=== PATIENT | female | born 1955 | race Asian ===

== ENCOUNTER → 2019-04-23 07:53 | Outpatient (CLI) | payer MEDICARE, OTHER, SELFPAY ==
--- NOTE | 2019-04-23 | DI.MG.S_ITS ---
BILATERAL DIGITAL SCREENING MAMMOGRAM 3D/2D WITH CAD: 04/23/2019 CLINICAL: Routine screening. Comparison is made to exams dated: 03/14/2018 mammogram, 05/04/2015 mammogram, and 03/14/2017 mammogram - [facility]. There are scattered fibroglandular elements in both breasts. Current study was also evaluated with a Computer Aided Detection (CAD) system. There are benign calcifications in both breasts. No significant masses, calcifications, or other findings are seen in either breast. There has been no significant interval change. IMPRESSION: There is no mammographic evidence of malignancy. A 1 year screening mammogram is recommended. This exam was interpreted at Station ID: [id number]. NOTE: For mammograms, a report in lay terms will be sent to the patient. Approximately 15% of breast malignancies will not be visualized mammographically. In the management of a palpable breast mass, a negative mammogram must not discourage biopsy of a clinically suspicious lesion. Electronically Signed By: Faisal martinez/damian:04/23/2019 09:14:43 letter sent: Normal Exam ACR BI-RADS Category 2: Benign Finding(s) 3342F
== END ==
PROVIDERS: Family Provider Family Medicine; PCP Family Medicine; Visit Provider Internal Medicine
DX: Z12.31 Encounter for screening mammogram for malignant neoplasm of breast (principal)
CPT/HCPCS: 77063; 77067

== ENCOUNTER → 2019-08-01 15:02 | Outpatient (CLI) | payer MEDICARE, OTHER, SELFPAY | PROVIDERS: Family Provider Family Medicine; PCP Internal Medicine; Referring Provider Internal Medicine; Visit Provider Internal Medicine | DX: M85.851 Other specified disorders of bone density and structure, right thigh (principal); Z78.0 Asymptomatic menopausal state; E07.9 Disorder of thyroid, unspecified; Z90.722 Acquired absence of ovaries, bilateral; Z87.891 Personal history of nicotine dependence | CPT/HCPCS: 77080 ==

== ENCOUNTER → 2020-05-01 08:40 | Outpatient (CLI) | payer MEDICARE, OTHER, SELFPAY ==
--- NOTE | 2020-05-01 | DI.MG.S_ITS ---
BILATERAL DIGITAL SCREENING MAMMOGRAM 3D/2D WITH CAD: 05/01/2020 CLINICAL: Routine screening. Comparison is made to exams dated: 04/23/2019 mammogram - [facility], 03/14/2018 mammogram, and 03/14/2017 mammogram - [facility]. There are scattered fibroglandular elements in both breasts. Current study was also evaluated with a Computer Aided Detection (CAD) system. There are benign calcifications in both breasts. No significant masses, calcifications, or other findings are seen in either breast. There has been no significant interval change. IMPRESSION: BENIGN There is no mammographic evidence of malignancy. A 1 year screening mammogram is recommended. This exam was interpreted at Station ID: [id number]. NOTE: For mammograms, a report in lay terms will be sent to the patient. Approximately 15% of breast malignancies will not be visualized mammographically. In the management of a palpable breast mass, a negative mammogram must not discourage biopsy of a clinically suspicious lesion. Electronically Signed By: Lopez Toure acr/damian:05/02/2020 14:02:49 letter sent: Normal Exam ACR BI-RADS Category 2: Benign Finding(s) 3342F
== END ==
PROVIDERS: Family Provider Family Medicine; PCP Internal Medicine; Referring Provider Internal Medicine; Visit Provider Internal Medicine
DX: Z12.31 Encounter for screening mammogram for malignant neoplasm of breast (principal)
CPT/HCPCS: 77063; 77067

== ENCOUNTER → 2021-05-07 10:11 | Outpatient (CLI) | payer MEDICARE, OTHER, SELFPAY ==
--- NOTE | 2021-05-07 | DI.MG.S_ITS ---
BILATERAL DIGITAL SCREENING MAMMOGRAM 3D/2D WITH CAD: 05/07/2021 CLINICAL: Routine screening. Comparison is made to exams dated: 05/01/2020 mammogram, 04/23/2019 mammogram - [facility], 03/14/2018 mammogram, and 05/04/2015 mammogram - [facility]. There are scattered fibroglandular elements in both breasts. Current study was also evaluated with a Computer Aided Detection (CAD) system. There are benign calcifications in both breasts. No significant masses, calcifications, or other findings are seen in either breast. There has been no significant interval change. IMPRESSION: BENIGN There is no mammographic evidence of malignancy. A 1 year screening mammogram is recommended. This exam was interpreted at Station ID: [id number]. NOTE: For mammograms, a report in lay terms will be sent to the patient. Approximately 15% of breast malignancies will not be visualized mammographically. In the management of a palpable breast mass, a negative mammogram must not discourage biopsy of a clinically suspicious lesion. Electronically Signed By: She ruby/damian:05/09/2021 10:36:14 letter sent: Normal Exam ACR BI-RADS Category 2: Benign Finding(s) 3342F
== END ==
PROVIDERS: Family Provider Family Medicine; PCP Internal Medicine; Referring Provider Internal Medicine; Visit Provider Internal Medicine
DX: Z12.31 Encounter for screening mammogram for malignant neoplasm of breast (principal)
CPT/HCPCS: 77063; 77067

== ENCOUNTER → 2022-01-27 09:34 | Outpatient (CLI) | payer MEDICARE, OTHER, SELFPAY ==
[2022-01-27 11:21] LABS: COVID19 -Nasal RAPID Negative (Negative)
== END ==
PROVIDERS: Family Provider Family Medicine; PCP Internal Medicine; Visit Provider Surgery
DX: Z20.822 Contact with and (suspected) exposure to COVID-19 (principal); Z01.812 Encounter for preprocedural laboratory examination
CPT/HCPCS: 87635; C9803

== ENCOUNTER 2022-01-30 07:49 | Day surgery (SDC) | payer MEDICARE, OTHER, SELFPAY ==
--- NOTE | 2022-01-30 | PATH_ITS ---
[facility] Accession Number: [id number] . 01 Material submitted: . PART A: gastrointestinal site - ANTRUM PART B: gastrointestinal site - GASTRIC BODY PART C: gastrointestinal site - GASTRIC BODY NODULE PART D: colon - ASCENDING COLON POLYP PART E: colon - RECTO-SIGMOID POLYP . 01 Clinical history: . COLONOSCOPY AND EGD . 01 Diagnosis: A. Stomach, Antrum, Biopsy: Antral mucosa with mild chronic gastritis and intestinal metaplasia. Intestinal metaplasia is present in 2 of 2 fragments. Negative for Helicobacter organisms by immunohistochemistry. Negative for dysplasia and malignancy. . B. Stomach, Body, Biopsy: Body-type mucosa with mild chronic gastritis and intestinal metaplasia. Intestinal metaplasia is present in 2 of 2 fragments. Negative for Helicobacter organisms by immunohistochemistry. Negative for dysplasia and malignancy. . C. Stomach, Body Nodule, Biopsy: Body type mucosa with intestinal metaplasia and xanthomatous changes. No evidence of Helicobacter on H/E stain. Negative for dysplasia and malignancy. . D. Ascending Colon, Polyp, Biopsy: Tubular adenoma. . E. Rectosigmoid Colon, Polyp, Biopsy: Tubular adenoma. [facility] 02/01/2022 1247 Local . 01 Electronically signed: . Shilpa Syed MD, Pathologist NPI- [id number] . 01 Gross description: . Part A: ANTRUM: Received in formalin are 2 fragment(s) of nj, soft tissue measuring 0.1 x 0.1 x 0.1 cm to 0.2 x 0.2 x 0.2 cm submitted entirely in 1 cassette(s) Part B: GASTRIC BODY: Received in formalin are 2 fragment(s) of nj, soft tissue measuring 0.2 x 0.1 x 0.1 cm to 0.3 x 0.2 x 0.2 cm submitted entirely in 1 cassette(s) Part C: GASTRIC BODY NODULE: Received in formalin are 2 fragment(s) of nj, soft tissue measuring 0.1 x 0.1 x 0.1 cm in aggregate submitted entirely in 1 cassette(s) Part D: ASCENDING COLON POLYP: Received in formalin is 1 fragment(s) of nj, soft tissue measuring 0.3 x 0.3 x 0.3 cm submitted entirely in 1 cassette(s) Part E: RECTO-SIGMOID POLYP: Received in formalin is 1 fragment(s) of nj, soft tissue measuring 0.2 x 0.2 x 0.2 cm submitted entirely in 1 cassette(s) /GIULIA 01/30/2022 2211 Local . 01 Microscopic: . A. An immunohistochemical stain was performed to evaluate for Helicobacter organisms and is negative. The control stain showed appropriate reactivity. . B. An immunohistochemical stain was performed to evaluate for Helicobacter organisms and is negative. The control stain showed appropriate reactivity. . * This test was developed and its performance characteristics determined by [employer]. It has not been cleared or approved by the U.S. Food and Drug Administration. The FDA has determined that such clearance or approval is not necessary. This test is used for clinical purposes. It should not be regarded as investigational or for research. . 01 Pathologist provided ICD-10: D12.2, D12.7, Z86.010 . 01 CPT . 874163, 493369, 718140, 773521, 957054, M26324 Specimen Comment: A courtesy copy of this report has been sent to [phone] Performed at: 01 [facility] [address] [place] [address], [place], [place] [id number] MD Abhay Moss MD Phone: [phone]
[2022-01-30 08:10] VITALS: BP 147/73; PULSE 69; RESP 16; TEMP 36.5; O2SAT 98
[2022-01-30 08:12] VITALS: BMI 32.1
[2022-01-30] MEDS: SODIUM CHLORIDE 0.9% 1,000 ML 84 ML IV (08:21)
--- NOTE | 2022-01-30 09:02 | PM.HP.1 ---
History of Present Illness History of Present Illness Date Patient Seen: 01/30/22 Time Patient Seen: 09:02 Chief complaint: Colonoscopy and EGD Narrative: GERD epigastric dyspepsia burning in quality. Personal history of colon polyps. Patient History Family & Social History Social History: household members spouse Tobacco & Substance use: Smoking Status Former smoker alcohol intake never Substance Use Type does not use Meds Home Medications and Allergies Home Medications Medication Instructions Recorded Confirmed Type LEVOTHYROXINE SODIUM (Synthroid) 0 PO * DOSE/FREQUENCY* ##0 03/07/08 History cetirizine 10 mg tablet 10 mg PO QDAY ##0 05/30/17 01/30/22 History losartan 25 mg tablet 25 mg PO QDAY ##0 05/30/17 01/30/22 History sitagliptin 50 mg-metformin ER 500 1 tab PO QDAY ##0 05/30/17 01/30/22 History mg tablet,extended release 24h mp (Janumet XR) atorvastatin 40 mg tablet 40 mg DAILY 01/30/22 01/30/22 History pioglitazone 15 mg tablet 15 mg DAILY 01/30/22 History Allergies Allergy/AdvReac Type Severity Reaction Status Date / Time adhesive [ADHESIVE] Allergy Unknown Verified 01/30/22 08:05 latex [LATEX] Allergy Unknown Verified 01/30/22 08:05 Review of Systems Review of Systems ROS: Yes All systems reviewed with the patient and are negative except as otherwise documented Exam Vital Signs (past 8 hours): - 01/30/22 08:10 Temperature 97.7 F Pulse Rate 69 Respiratory Rate 16 Blood Pressure 147/73 H Pulse Oximetry 98 Oxygen Delivery Method Room Air Oxygen Delivery Method Room Air Const General: cooperative HENMT Head: normal to inspection Eyes General: appearance normal, both eyes and all related structures Neck Neck: normal visual inspection Chest Chest: normal inspection of the chest Resp Effort & Inspection: normal respiratory effort Cardio Rate: regular rate GI Inspection: normal to inspection Skin General: no rashes or lesions noted Neuro General: patient alert and patient awake Extrem General: normal to inspection and no pedal edema Psych Appearance: grossly normal Assessment & Plan Assessment & Plan narrative: 66-year-old female with severe intermittent reflux symptoms 3 or 4 times out of the month plus burning epigastric discomfort twice a week on average. She has a personal history of colon polyps. EGD and colonoscopy are pursued today. Time Spent With Patient Critical Care time: I spent a total of [] minutes of critical care time on this patient's care today; this time is exclusive of procedural time.
--- NOTE | 2022-01-30 09:04 | PM.PREOP ---
Pre-operative Note COVID-19 COVID-19 status: Negative Result date/Date tested (Pos, Neg/Pending): 01/27/22 Criteria for continued procedure: Possibility delay results in more complex future surgery or treatment Interval Note History & Physical reviewed/Exam performed by Physician: Yes Changes to H&P: No ASA Class (for procedural sedation): II
--- NOTE | 2022-01-30 09:47 | PM.OP.EC ---
Operative Date/Time/Diagnoses Date of procedure: 01/30/22 Time of procedure: 09:48 Pre-op diagnosis: Reflux, dyspepsia, family history of gastric cancer, personal history of colon polyps. Post-op diagnosis: same Procedure & Clinicians Study performed: EGD with biopsies and colonoscopy with cold forceps polypectomy Same procedure as scheduled: Yes Indications: GERD, dyspepsia, family history of gastric cancer, personal history of colon polyps Surgeon: Jered Hinojosa Procedure Notes SCOAP/Timeout: Done Procedure in detail: After the risks and benefits were explained, written and verbal informed consent was obtained. The patient was brought into the procedure room and placed into the left lateral decubitus position. Please see nurse surveillance operator notes for sedation details. The scope was introduced into the mouth through the bite block and advanced under direct visualization to the 2nd portion of the duodenum. The scope was slowly withdrawn carefully examining the mucosa for any defects or lesions. Retroflexed views were accomplished in the stomach. The stomach was decompressed, the scope was then removed from the patient who tolerated the procedure well. The patient was then turned around a digital rectal examination accomplished. The scope was introduced into the rectum and advanced to the cecum as identified by the appendiceal orifice and ileocecal valve. The scope was slowly withdrawn to carefully examine the mucosa for any defects or lesions. Multiple direct views were made through the dentate line for exclusion of pathology the colon was decompressed scope removed the patient tolerated the procedure well. Adult colonoscope Bowel prep adequate Scope withdrawal time: 14 minutes Sedation minutes: 43 Complications: none Impression: 1. Duodenum: This was visually normal from the bulb through the 2nd portion. 2. Stomach: No gastric outlet obstruction no ulcers no mass lesions. There was however an unusual somewhat friable nodular and erythematous swath of mucosa that extended from the cardia down through the gastric body into proximal antrum. This area was targeted for biopsy in submitted for histopathology. Prior to that a separate set of biopsies had been acquired from the antrum for exclusion of H pylori. Within the abnormal section of mucosa there was a small 3-4 mm slightly white sessile mucosal elevation that was targeted with the forceps and submitted separately. 3. Esophagus: The squamocolumnar junction correlated with the top of the gastric folds. GEJ was at 45 cm from the incisors. No acute erosive changes no strictures no mass lesions. 4. Colon: There was a small polyp in the rectosigmoid region removed with cold forceps. This measured perhaps 3-4 mm. It was a 4-5 mm polyp in the ascending colon removed with cold forceps. No additional pathology was appreciated throughout. Grade 2 hemorrhoids were noted on digital exam and direct views. Endoscopic diagnosis 1. Focal nodular friable gastropathy 2. Gastric nodule 3. Colon polyps 4. Grade 2 hemorrhoids. Post-procedure Plan for aftercare: 1. Await histopathology. 2. Repeat colonoscopy 7 years. 3. If Helicobacter is found it will need to be eradicated with standard triple therapy. Disposition: PACU
[2022-01-30 09:50] VITALS: BP 110/65; PULSE 62; RESP 17; TEMP 36.9; O2SAT 96
[2022-01-30 09:55] VITALS: BP 122/65; PULSE 62; RESP 18; O2SAT 95
[2022-01-30 10:00] VITALS: BP 129/67; PULSE 61; RESP 18; O2SAT 97
[2022-01-30 10:10] VITALS: BP 138/71; PULSE 60; RESP 16; O2SAT 94
[2022-01-30 10:23] VITALS: BP 143/78; PULSE 65; RESP 16; O2SAT 95
--- NOTE | 2022-01-30 10:28 | SUR.PHASEII ---
Pt A&Ox4, denies any distress, tolerating PO, VSS, and ready to discharge home. Discharge instructions reviewed with patient with teachback. Called spouse 3 times to make aware pt ready to go home, no answer, messages left. Volunteer has spoken with spouse and verified that will be at the ER entrance to transport pt home. Pt dressed self without any issues, IV DC'd intact. Pt left unit stable with all personal belongings via w/c with volunteer assist.
== END 2022-01-30 10:28 | disposition home or self-care (01) ==
PROVIDERS: Family Provider Family Medicine; PCP Internal Medicine; Referring Provider Internal Medicine Gastroenterology; Visit Provider Internal Medicine Gastroenterology
PROC: 0DJ08ZZ Inspection of Upper Intestinal Tract, Via Natural or Artificial Opening Endoscopic (ICD-10-PCS; CPT 43235; principal; 2022-01-30 09:00)
PROC: 0DJD8ZZ Inspection of Lower Intestinal Tract, Via Natural or Artificial Opening Endoscopic (ICD-10-PCS; CPT 45378; 2022-01-30 09:00)
DX: Z12.11 Encounter for screening for malignant neoplasm of colon (principal); K21.9 Gastro-esophageal reflux disease without esophagitis; R10.13 Epigastric pain; Z80.0 Family history of malignant neoplasm of digestive organs; Z86.010 Personal history of colon polyps; K64.1 Second degree hemorrhoids; K31.9 Disease of stomach and duodenum, unspecified; D12.7 Benign neoplasm of rectosigmoid junction; D12.2 Benign neoplasm of ascending colon; K29.50 Unspecified chronic gastritis without bleeding; K31.A12 Gastric intestinal metaplasia without dysplasia, involving the body (corpus)
CPT/HCPCS: 45380; 43239; 82962; J2704; J3010

== ENCOUNTER → 2022-04-14 13:49 | Outpatient (CLI) | payer MEDICARE, OTHER, SELFPAY ==
[2022-04-14 15:01] LABS: COVID19 -Nasal RAPID Negative (Negative)
== END ==
PROVIDERS: Family Provider Family Medicine; PCP Internal Medicine; Visit Provider Surgery
DX: Z20.822 Contact with and (suspected) exposure to COVID-19 (principal); Z01.812 Encounter for preprocedural laboratory examination
CPT/HCPCS: 87635; C9803

== ENCOUNTER 2022-04-17 08:06 | Day surgery (SDC) | payer MEDICARE, OTHER, SELFPAY ==
--- NOTE | 2022-04-17 | PATH_ITS ---
[facility] Accession Number: [id number] . 01 Material submitted: . PART A: stomach - ANTRUM BIOPSY PART B: stomach - GREATER CURVATURE BIOPSY PART C: stomach - LESSER CURVATURE BIOPSY PART D: gastrointestinal site - GASTRIC BODY BIOPSY PART E: gastrointestinal site - FUNDUS BIOPSY PART F: gastrointestinal site - CARDIA BIOPSY . 01 Diagnosis: A. Stomach, Antrum, Biopsy: Antral mucosa with mild chronic gastritis and intestinal metaplasia. Negative for Helicobacter by immunohistochemistry. Negative for dysplasia and malignancy. . B. Stomach, Greater Curvature, Biopsy: Chronic gastritis with intestinal metaplasia. Negative for Helicobacter by immunohistochemistry. Negative for dysplasia and malignancy. . C. Stomach, Lesser Curvature, Biopsy: Mild chronic gastritis. Negative for Helicobacter by immunohistochemistry. Negative for intestinal metaplasia. Negative for dysplasia and malignancy. . D. Stomach, Body, Biopsy: Body-type mucosa with patchy mild atrophy and intestinal metaplasia. Negative for Helicobacter by immunohistochemistry. Negative for dysplasia and malignancy. . E. Stomach, Fundus, Biopsy: Body-type mucosa with no significant diagnostic abnormality. Negative for Helicobacter by immunohistochemistry. Negative for intestinal metaplasia. Negative for dysplasia and malignancy. . F. Stomach, Cardia, Biopsy: Chronic gastritis with intestinal metaplasia. Negative for Helicobacter by immunohistochemistry. Negative for dysplasia and malignancy. [facility] 04/20/2022 1656 Local . 01 Electronically signed: . Shilpa Syed MD, Pathologist NPI- [id number] . 01 Gross description: . Part A: ANTRUM BIOPSY: Received in formalin are 4 fragment(s) of nj, soft tissue measuring 0.5 x 0.2 x 0.1 cm to 0.2 x 0.1 x 0.1 cm submitted entirely in 1 cassette(s) Part B: GREATER CURVATURE BIOPSY: Received in formalin are 4 fragment(s) of nj, soft tissue measuring 0.3 x 0.2 x 0.2 cm to 0.3 x 0.1 x 0.1 cm submitted entirely in 1 cassette(s) Part C: LESSER CURVATURE BIOPSY: Received in formalin are 3 fragment(s) of nj, soft tissue measuring 0.4 x 0.3 x 0.2 cm to 0.1 x 0.1 x 0.1 cm submitted entirely in 1 cassette(s) Part D: GASTRIC BODY BIOPSY: Received in formalin are 3 fragment(s) of nj, soft tissue measuring 0.4 x 0.3 x 0.1 cm to 0.2 x 0.1 x 0.1 cm submitted entirely in 1 cassette(s) Part E: FUNDUS BIOPSY: Received in formalin are 2 fragment(s) of nj, soft tissue measuring 0.4 x 0.3 x 0.2 cm to 0.4 x 0.2 x 0.1 cm submitted entirely in 1 cassette(s) Part F: CARDIA BIOPSY: Received in formalin are 4 fragment(s) of nj, soft tissue measuring 0.2 x 0.2 x 0.1 cm to 0.2 x 0.1 x 0.1 cm submitted entirely in 1 cassette(s) /CPE 04/18/2022 0723 Local . 01 Microscopic: . A. An immunohistochemical stain was performed to evaluate for Helicobacter organisms and is negative. The control stain showed appropriate reactivity. . B. An immunohistochemical stain was performed to evaluate for Helicobacter organisms and is negative. The control stain showed appropriate reactivity. . C. An immunohistochemical stain was performed to evaluate for Helicobacter organisms and is negative. The control stain showed appropriate reactivity. . D. An immunohistochemical stain was performed to evaluate for Helicobacter organisms and is negative. The control stain showed appropriate reactivity. . E. An immunohistochemical stain was performed to evaluate for Helicobacter organisms and is negative. The control stain showed appropriate reactivity. . F. An immunohistochemical stain was performed to evaluate for Helicobacter organisms and is negative. The control stain showed appropriate reactivity. . * This test was developed and its performance characteristics determined by [employer]. It has not been cleared or approved by the U.S. Food and Drug Administration. The FDA has determined that such clearance or approval is not necessary. This test is used for clinical purposes. It should not be regarded as investigational or for research. . 01 Pathologist provided ICD-10: K21.9 . 01 CPT . 500724, 809089, 821809, 966004, 274534, 646299, G20709 Specimen Comment: A courtesy copy of this report has been sent to [phone] Performed at: [address] [id number] MD Abhay Moss MD Phone: [phone]
[2022-04-17 08:33] VITALS: BMI 29.7
[2022-04-17] MEDS: SODIUM CHLORIDE 0.9% 1,000 ML 84 ML IV (08:44)
--- NOTE | 2022-04-17 08:56 | PM.HP.1 ---
History of Present Illness History of Present Illness Date Patient Seen: 04/17/22 Time Patient Seen: 08:56 Chief complaint: EGD W/POSS BX Narrative: Patient is a very pleasant 58-year-old female who presented for repeat upper endoscopy. She underwent EGD 01/30/2022 where she was noted to have biopsies consistent with intestinal metaplasia. Her father had gastric cancer. She was brought back today for gastric mapping. Patient History Medical History Diabetes mellitus, type II Hypercholesteremia Hypertension Family & Social History Social History: household members spouse Tobacco & Substance use: Smoking Status Former smoker alcohol intake never Substance Use Type does not use Meds Home Medications and Allergies Home Medications Medication Instructions Recorded Confirmed Type LEVOTHYROXINE SODIUM (Synthroid) 100 mcg PO DAILY ##0 03/07/08 04/17/22 History cetirizine 10 mg tablet 10 mg PO QDAY ##0 05/30/17 04/17/22 History losartan 25 mg tablet 25 mg PO QDAY ##0 05/30/17 04/17/22 History sitagliptin 50 mg-metformin ER 500 1 tab PO QDAY ##0 05/30/17 04/17/22 History mg tablet,extended release 24h mp (Janumet XR) atorvastatin 40 mg tablet 40 mg DAILY 01/30/22 01/30/22 History pioglitazone 15 mg tablet 15 mg DAILY 01/30/22 04/17/22 History Allergies Allergy/AdvReac Type Severity Reaction Status Date / Time latex [LATEX] Allergy Severe ITCHING Verified 04/17/22 08:27 adhesive [ADHESIVE] Allergy Intermediate Rash Verified 04/17/22 08:27 Review of Systems Review of Systems ROS: Yes All systems reviewed with the patient and are negative except as otherwise documented Exam Const General: cooperative, healthy appearing, comfortable, well developed, well groomed and No acute distress HENMT Head: atraumatic Resp Effort & Inspection: normal respiratory effort, able to speak in complete sentences and no audible wheezes Auscultation: clear to auscultation bilaterally Cardio Rate: regular rate Rhythm: regular rhythm Assessment & Plan Assessment & Plan narrative: 1. Gastric intestinal metaplasia Repeat EGD today, further recommendations to follow Time Spent With Patient Critical Care time: I spent a total of [] minutes of critical care time on this patient's care today; this time is exclusive of procedural time.
[2022-04-17 08:58] VITALS: BP 192/80; PULSE 78; RESP 16; TEMP 36.2; O2SAT 98
--- NOTE | 2022-04-17 09:19 | PM.OP.EGD ---
Operative Date/Time/Diagnoses Date of procedure: 04/17/22 Time of procedure: 09:02 Procedure Notes Procedure in detail: Surgeon: Ale Galeana DO Procedure: Esophagogastroduodenoscopy with gastric mapping biopsies Preoperative diagnosis: 1. Intestinal metaplasia 01/30/2022 2. Family history gastric cancer, father Postoperative diagnosis: 1. Nodular gastric mucosa, biopsied 2. Normal appearing esophagus 3. Normal-appearing duodenum Medications: Monitored anesthesia care Preanesthesia Assessment An H and P was performed/updated and the Px?s ASA class is 2. The procedure was discussed in detail with the patient. The potential risks and complications including infection, bleeding, missed lesions, perforation, need for surgery in case of perforation, prolonged hospital stay, and were explained. A brief question and answer period was allotted and once all questions were answered, informed consent was obtained. The patient was brought back to the procedure room and placed on standard monitoring. The patient?s vital signs were monitored continuously throughout the entire procedure. Prior to starting, a timeout was performed to confirm the patient?s identity, allergies, medications, and procedure. Procedure in detail The patient was placed in left lateral decubitus position and a bite block was inserted. The tip of the upper endoscope was placed into the mouth and advanced without difficulty under direct visualization into the esophagus. Esophagus: Normal appearing esophagus Stomach: Nodular gastric mucosa due to intestinal metaplasia found on gastric biopsies 01/30/2022 gastric mapping was performed. Biopsies were obtained from the antrum, greater curvature, lesser curvature, body, fundus, and cardia Duodenum: Normal appearing duodenum The patient tolerated the procedure well and will be brought back to the recovery area to be discharged once criteria are met. Complications There were no complications and estimated blood loss was minimal. Recommendations: Resume previous diet Continue outPx medications Follow up pathology results Repeat EGD will be determined based on pathology results Office follow up if persistent symptoms An emergency contact number was given to the patient for any complications related to the procedure
[2022-04-17 09:28] VITALS: BP 122/68; PULSE 67; RESP 16; O2SAT 98
[2022-04-17 09:35] VITALS: BP 136/68; PULSE 66; RESP 16; TEMP 36.2; O2SAT 98
[2022-04-17 09:46] VITALS: BP 122/72; PULSE 88; RESP 16; TEMP 36.8; O2SAT 98
== END 2022-04-17 11:02 | disposition home or self-care (01) ==
PROVIDERS: Family Provider Family Medicine; PCP Family Medicine; Referring Provider Student in an Organized Health Care Education/Training Program; Visit Provider Student in an Organized Health Care Education/Training Program
PROC: 0DJ08ZZ Inspection of Upper Intestinal Tract, Via Natural or Artificial Opening Endoscopic (ICD-10-PCS; CPT 43235; principal; 2022-04-17 09:30)
DX: K31.A0 Gastric intestinal metaplasia, unspecified (principal); Z80.0 Family history of malignant neoplasm of digestive organs; E11.9 Type 2 diabetes mellitus without complications; K76.0 Fatty (change of) liver, not elsewhere classified; E03.9 Hypothyroidism, unspecified; I10 Essential (primary) hypertension; E78.00 Pure hypercholesterolemia, unspecified; Z86.010 Personal history of colon polyps; Z79.84 Long term (current) use of oral hypoglycemic drugs; K29.50 Unspecified chronic gastritis without bleeding
CPT/HCPCS: 43239; J2704

== ENCOUNTER → 2022-05-13 13:10 | Outpatient (CLI) | payer MEDICARE, OTHER, SELFPAY ==
--- NOTE | 2022-05-13 13:11 | DI.MG.S_ITS ---
BILATERAL DIGITAL SCREENING MAMMOGRAM 3D/2D WITH CAD: 05/13/2022 CLINICAL: Routine screening. Comparison is made to exams dated: 05/07/2021 mammogram, 05/01/2020 mammogram, and 04/23/2019 mammogram - [facility]. There are scattered areas of fibroglandular density in both breasts (category b / 25%-50% glandular tissue). Current study was also evaluated with a Computer Aided Detection (CAD) system. There are benign calcifications in both breasts. No significant masses, calcifications, or other findings are seen in either breast. There has been no significant interval change. IMPRESSION: BENIGN There is no mammographic evidence of malignancy. A 1 year screening mammogram is recommended. Based on the Tyrer Cuzick model (a risk assessment model) the patient's lifetime risk is 4.3% and her 10 year risk is 2.5%. According to the ACR, ACS, and NCCN guidelines, an annual breast MRI exam along with mammogram is recommended if the patient's lifetime risk is 20% or greater. This exam was interpreted at Station ID: [id number]. NOTE: For mammograms, a report in lay terms will be sent to the patient. Approximately 15% of breast malignancies will not be visualized mammographically. In the management of a palpable breast mass, a negative mammogram must not discourage biopsy of a clinically suspicious lesion. Electronically Signed By: Tani snyder/damian:05/15/2022 09:54:01 letter sent: Normal Exam ACR BI-RADS Category 2: Benign Finding(s) 3342F
== END ==
PROVIDERS: Family Provider Family Medicine; PCP Family Medicine; Referring Provider Family Medicine; Visit Provider Family Medicine
DX: Z12.31 Encounter for screening mammogram for malignant neoplasm of breast (principal)
CPT/HCPCS: 77063; 77067

== ENCOUNTER → 2023-06-30 08:45 | Outpatient (CLI) | payer MEDICARE, OTHER, SELFPAY ==
--- NOTE | 2023-06-30 | DI.MG.S_ITS ---
BILATERAL DIGITAL SCREENING MAMMOGRAM 3D/2D WITH CAD: 06/30/2023 CLINICAL: Routine screening. Comparison is made to exams dated: 05/13/2022 mammogram, 05/07/2021 mammogram, and 05/01/2020 mammogram - [facility]. There are scattered areas of fibroglandular density in both breasts (category b / 25%-50% glandular tissue). Current study was also evaluated with a Computer Aided Detection (CAD) system. There are benign calcifications in both breasts. No significant masses, calcifications, or other findings are seen in either breast. There has been no significant interval change. IMPRESSION: BENIGN There is no mammographic evidence of malignancy. A 1 year screening mammogram is recommended. Based on the Tyrer Cuzick model (a risk assessment model) the patient's lifetime risk is 4.1% and her 10 year risk is 2.6%. According to the ACR, ACS, and NCCN guidelines, an annual breast MRI exam along with mammogram is recommended if the patient's lifetime risk is 20% or greater. This exam was interpreted at Station ID: [id number]. NOTE: For mammograms, a report in lay terms will be sent to the patient. Approximately 15% of breast malignancies will not be visualized mammographically. In the management of a palpable breast mass, a negative mammogram must not discourage biopsy of a clinically suspicious lesion. Electronically Signed By: Faisal [email or web address]:07/02/2023 07:42:52 letter sent: Normal Exam ACR BI-RADS Category 2: Benign Finding(s) 3342F
== END ==
LOC: MAMMO 08:47
PROVIDERS: PCP Family Medicine; Referring Provider Family Medicine; Visit Provider Family Medicine
DX: Z12.31 Encounter for screening mammogram for malignant neoplasm of breast (principal); R92.323 Mammographic fibroglandular density, bilateral breasts
CPT/HCPCS: 77063; 77067

== ENCOUNTER → 2024-07-12 09:56 | Outpatient (CLI) | payer MEDICARE, OTHER, SELFPAY ==
--- NOTE | 2024-07-12 | DI.MG.S_ITS ---
BILATERAL DIGITAL SCREENING MAMMOGRAM 3D/2D WITH CAD: 07/12/2024 CLINICAL: Routine screening. Comparison is made to exams dated: 06/30/2023 mammogram, 05/13/2022 mammogram, and 05/07/2021 mammogram - [facility]. There are scattered areas of fibroglandular density (category b / 25%-50% glandular tissue). Current study was also evaluated with a Computer Aided Detection (CAD) system. There are benign calcifications in both breasts. No significant masses, calcifications, or other findings are seen in either breast. There has been no significant interval change. IMPRESSION: BENIGN There is no mammographic evidence of malignancy. A 1 year screening mammogram is recommended. Based on the Tyrer Cuzick model (a risk assessment model) the patient's lifetime risk is 3.9% and her 10 year risk is 2.6%. According to the ACR, ACS, and NCCN guidelines, an annual breast MRI exam along with mammogram is recommended if the patient's lifetime risk is 20% or greater. This exam was interpreted at Station ID: [id number]. NOTE: For mammograms, a report in lay terms will be sent to the patient. Approximately 15% of breast malignancies will not be visualized mammographically. In the management of a palpable breast mass, a negative mammogram must not discourage biopsy of a clinically suspicious lesion. Electronically Signed By: Charles [email or web address]/[email or web address]:07/14/2024 11:29:48 letter sent: Normal Exam ACR BI-RADS Category 2: Benign
== END ==
PROVIDERS: PCP Family Medicine; Referring Provider Family Medicine; Visit Provider Family Medicine
DX: Z12.31 Encounter for screening mammogram for malignant neoplasm of breast (principal)
CPT/HCPCS: 77063; 77067